=== PATIENT | male | born 1995 | race Caucasian/White ===

== ENCOUNTER 2019-07-07 18:18 | Inpatient (IN) | payer OTHER ==
[~2019-07-07] VITALS: Ht 180.3 cm; Wt 79.8 kg
[2019-07-07 18:30] VITALS: BP 124/79
--- NOTE | 2019-07-07 18:30 | NUR ---
ED Nurse Note: Patient walked in to ED due to RLQ abdominal pain x2 days. Denies nausea and vomiting. Afebrile. Alert and oriented, verbally responsive. Breathing even and unlabored. VSS.
--- NOTE | 2019-07-07 18:41 | NUR ---
ED Nurse Note: she by lo . arrives ambulatory for c/o RLQ abd pain. started 2 days ago without a fever. amb steady gait to . denies urinary s/s. voided urine sample sent to ed. pt to have US RLQ. no iv/blood draw ordered at this time.
--- NOTE | 2019-07-07 18:42 | NUR ---
ED Nurse Note: pt notified to remain NPO.
[2019-07-07 19:01] LABS: APPEARANCE,URINE CLEAR; BILIRUBIN, URINE NEGATIVE (NEGATIVE); COLOR,URINE PALE YELLOW; GLUCOSE, URINE (UA) NEGATIVE (NEGATIVE); KETONES,URINE NEGATIVE (NEGATIVE); LEUKOCYTE ESTERASE ,URINE NEGATIVE (NEGATIVE); NITRITE,URINE NEGATIVE (NEGATIVE); PH,URINE 6 (4.5-8.0); PROTEIN,URINE NEGATIVE (NEGATIVE); UROBILINOGEN,URINE NORMAL MG/DL (0.0-1.0)
[2019-07-07 19:10] LABS: BASOPHILS % (AUTO) 0.8 % (0.0-2.0); EOSINOPHILS % (AUTO) 0.4 % (0.0-3.0); HEMATOCRIT 40.9 % (42.0-52.0); HEMOGLOBIN 14.2 G/DL (14.2-18.0); LYMPHOCYTES % (AUTO) 16.5 % (20.0-45.0); MEAN CORPUSCULAR VOLUME 89 FL (80-99); MONOCYTES % (AUTO) 11.8 % (1.0-10.0); NEUTROPHILS % (AUTO) 70.6 % (45.0-75.0); PLATELET COUNT 228 K/UL (150-450); RED BLOOD COUNT 4.62 M/UL (4.70-6.10); RED CELL DISTRIBUTION WIDTH 10.3 % (11.6-14.8)
--- NOTE | 2019-07-07 19:10 | NUR ---
ED Nurse Note: Patient currently still undergoing ultrasound at bedside. Will continue to monitor.
--- NOTE | 2019-07-07 19:12 | NUR ---
HAND-OFF: Report given to Porsha BERGERON.
[2019-07-07 19:24] LABS: INR 1.1 (0.9-1.1)
[2019-07-07 19:28] LABS: ANION GAP 12 mmol/L (5-15); BLOOD UREA NITROGEN 11 mg/dL (7-18); CALCIUM 9.3 MG/DL (8.5-10.1); CARBON DIOXIDE 27 MMOL/L (21-32); CHLORIDE 101 MMOL/L (98-107); CREATININE 1.1 MG/DL (0.55-1.30); POTASSIUM 3.2 MMOL/L (3.5-5.1); SODIUM 140 MMOL/L (136-145)
[2019-07-07 19:42] LABS: ALANINE AMINOTRANSFERASE 24 U/L (12-78); ALBUMIN 3.9 G/DL (3.4-5.0); ALBUMIN/GLOBULIN RATIO 1.1 (1.0-2.7); ALKALINE PHOSPHATASE 77 U/L (46-116); ASPARTATE AMINO TRANSFERASE 22 U/L (15-37); BILIRUBIN,DIRECT 0.2 MG/DL (0.0-0.3); BILIRUBIN,TOTAL 1.3 MG/DL (0.2-1.0)
--- NOTE | 2019-07-07 20:10 | NUR ---
ED Nurse Note: Patient is resting comfortably with no s/s of acute distress. Will continue to monitor.
[2019-07-07] MEDS ORDERED: Piperacillin/Tazobactam 3.375 GM in NS 110 ML IVPB ONE (20:30)
--- NOTE | 2019-07-07 21:21 | Diagnostic Imaging Report ---
Indication: Abdominal pain Technique: Continuous helical transaxial imaging of the abdomen and pelvis was obtained from the lung bases to the pubic symphysis during intravenous contrast administration. Coronal 2-D reformats were also obtained. Study obtained in a Siemens sensation [address] Automatic Exposure Control was utilized. Total Dose length Product (DLP): 718.[address] Dose Index Volume (CTDIvol): 13.68 mGy Comparison: None Findings: The appendix shows wall thickening and enhancement and is dilated measuring up to about 13 mm. There is a moderate to severe amount of stranding of the periappendiceal fat. Findings consistent with acute appendicitis. There is no drainable abscess. There is no evidence of bowel obstruction or free fluid. The urinary bladder is unremarkable. Gallbladder is contracted. Solid organs appear normal. Lung bases are clear. IMPRESSION: Acute appendicitis. Preliminary results were conveyed to the emergency department 07/07/2019, 20:56. Findings subsequently discussed and reviewed with Dr. Alejandra. The CT scanner at [facility] is accredited by the [employer] and the scans are performed using dose optimization techniques as appropriate to a performed exam including Automatic Exposure control.
--- NOTE | 2019-07-07 21:25 | Emergency Room Report ---
History of Present Illness General Chief Complaint: Abdominal Pain Source: Patient (Carolee Hebert) Present Illness HPI 23-year-old male with no symptom past medical history here complaining of 2 days of right lower quadrant abdominal pain. Patient is rating the pain 7 out of 10 without radiation. Denies nausea vomiting, diarrhea and constipation. Denies heavy lifting and strenuous physical activity. [place] Denies chest pain, shortness of breath, palpitation , dizziness and headache. Has not taken medication for symptoms. Denies any past surgical history in the abdomen. Denies fever and chills. Denies any drug use, smoking, alcohol intake. Patient is guarding her right lower quadrant. (Carolee Hebert) Allergies: Coded Allergies: No Known Allergies (Unverified , 07/07/19) Patient History Past Medical History: see triage record Past Surgical History: unable to obtain Pertinent Family History: none Immunizations: UTD Reviewed Nursing Documentation: PMH: Agreed; PSxH: Agreed (Carolee Hebert) Nursing Documentation-PMH Past Medical History: No Stated History (Carolee Hebert) Review of Systems All Other Systems: negative except mentioned in HPI (Carolee Hebert) Physical Exam Vital Signs Date Time Temp Pulse Resp B/P (MAP) Pulse Ox O2 Delivery O2 Flow Rate FiO2 07/07/19 18:24 98.4 80 18 124/79 (94) 97 Room Air Sp02 EP Interpretation: reviewed, normal General Appearance: no apparent distress, alert, GCS 15, non-toxic Head: normocephalic, atraumatic Eyes: bilateral eye normal inspection, bilateral eye PERRL ENT: hearing grossly normal, normal pharynx, no angioedema, normal voice Neck: full range of motion, supple/symm/no masses Respiratory: chest non-tender, lungs clear, normal breath sounds, speaking full sentences Cardiovascular #1: regular rate, rhythm, no edema, no murmur Gastrointestinal: normal bowel sounds, non tender, soft, non-distended, guarding - RLQ, other - Mcburnys pos, neg rovsings Rectal: deferred Genitourinary: no CVA tenderness Musculoskeletal: back normal, gait/station normal, normal range of motion, non- tender, no calf tenderness Neurologic: alert, oriented x3, responsive, motor strength/tone normal, sensory intact, speech normal Psychiatric: judgement/insight normal, memory normal, mood/affect normal, no suicidal/homicidal ideation Skin: no rash Lymphatic: no adenopathy (Carolee Hebert) Medical Decision Making PA Attestation All my diagnosis and treatment plans were reviewed ad discussed with my supervising physician Dr. Villegas (Carolee Hebert) Diagnostic Impression: Primary Impression: Perforated appendix Additional Impression: Acute appendicitis ER Course 23-year-old male with no symptom past medical history here complaining of 2 days of right lower quadrant abdominal pain. Patient is rating the pain 7 out of 10 without radiation. Denies nausea vomiting, diarrhea and constipation. Denies heavy lifting and strenuous physical activity. Patient reports that [place]. Denies chest pain, shortness of breath, palpitation , dizziness and headache. Has not taken medication for symptoms. Denies any past surgical history in the abdomen. Denies fever and chills. Denies any drug use, smoking, alcohol intake. Patient is guarding her right lower quadrant. Ddx considered but are not limited to: appendicitis, cholecystis, gastritis, gasthroentritis, UTI, pyelonephritis, SBO, diverticulitis, influenza with GI manifestation, Vital signs: are WNL, pt. is afebrile H&PE are most consistent with: perforated appendix ORDERS: abdominal CT, abdominal pain set, EKG, ED INTERVENTIONS: Shaq Patient was admited with diagnosis of perforated appendix to Dr. Qureshi under supervision of Dr.: Bakari Alejandra has already been consulted by Dr. Villegas pt stable at time of admission (Carolee Hebert) ER Course Patient is a 23-year-old male seen by me with physician yard assistant. Patient was noted to have several days of right lower abdominal pain. Physical exam shows some evidence of localized peritonitis in the right lower abdomen. CT imaging showed appendicitis with perforation without any definite abscess. I reviewed the patient's labs which showed normal white blood count despite significant findings on CT. patient declined pain medications at this time. Dr. Lucien Qureshi was contacted for inpatient management due to panel physician. Dr. Alejandra was contacted for surgical consult. Patient was given IV Zosyn. He does not be appear to be septic or toxic. (Matheus Villegas MD) CT/MRI/US Diagnostic Results CT/MRI/US Diagnostic Results : Imaging Test Ordered: abd CT with contrast Impression CT ABDOMEN With Contrast: Impression: Dilated appendix measuring up to 14 mm with marked adjacent stranding and probable appendicoliths suggesting acute appendicitis. Microperforation is suspected. No loculated fluid collection to suggest abscess. Additional findings: Lower thorax is unremarkable. Liver, gallbladder, spleen, pancreas and adrenal glands are unremarkable. Kidneys, ureters and urinary bladder unremarkable. Bowel is unremarkable. No acute osseous abnormality. (Carolee Hebert) Last Vital Signs Date Time Temp Pulse Resp B/P (MAP) Pulse Ox O2 Delivery O2 Flow Rate FiO2 07/07/19 18:30 98.4 18 124/79 97 Room Air 07/07/19 18:30 80 (Carolee Hebert) Disposition: ADMITTED INPATIENT Condition: Stable Scripts No Active Prescriptions or Reported Meds Referrals: NOT CHOSEN IPA/,REFERRING (PCP) Carolee Hebert Jul 07, 2019 21:25 Matheus Villegas MD Jul 09, 2019 11:35
--- NOTE | 2019-07-07 21:27 | NUR ---
ED Nurse Note: Patient cleared for transport to floor, patient accompanied by refurbish technician, Report called in to Karishma RN in Med surg. Patient is A&Ox4, no s/s of acute distress and ambulattory with steady gait.
--- NOTE | 2019-07-07 21:30 | NUR ---
NURSE NOTES: Received a report from ELYSSA Story. Awaiting for pt's arrival.
--- NOTE | 2019-07-07 21:48 | NUR ---
NURSE NOTES: Pt arrived in the unit. Pt is in stable condition. AAOX4. Able to make needs known. No c/o pain/discomfort. IV site is patent and intact. Belongings checked and signed by patient. Skin is intact. Bed in lowest position. Bed alarm is on. Call light within reach. Will continue to monitor.
[2019-07-07 21:57] VITALS: BP 152/82
[2019-07-07] MEDS: D5 1/2NS 1,000 ML IV SCH (22:37)
[2019-07-08] VITALS (12 sets, daily range): BP systolic 109–148; BP diastolic 56–79
[2019-07-08 07:03] LABS: BASOPHILS % (AUTO) 0.7 % (0.0-2.0); EOSINOPHILS % (AUTO) 1.1 % (0.0-3.0); HEMATOCRIT 38.8 % (42.0-52.0); HEMOGLOBIN 13.4 G/DL (14.2-18.0); LYMPHOCYTES % (AUTO) 16.3 % (20.0-45.0); MEAN CORPUSCULAR VOLUME 89 FL (80-99); MONOCYTES % (AUTO) 15.7 % (1.0-10.0); NEUTROPHILS % (AUTO) 66.1 % (45.0-75.0); PLATELET COUNT 206 K/UL (150-450); RED BLOOD COUNT 4.35 M/UL (4.70-6.10); RED CELL DISTRIBUTION WIDTH 10.6 % (11.6-14.8); WHITE BLOOD COUNT 8.4 K/UL (4.8-10.8)
--- NOTE | 2019-07-08 07:15 | NUR ---
HAND-OFF: Report given to Bruce Andre RN. Endorsed to ELYSSA Barrera to f/u the 3.2 potassium yesterday.
[2019-07-08 07:49] LABS: ALANINE AMINOTRANSFERASE 25 U/L (12-78); ALBUMIN 3.6 G/DL (3.4-5.0); ALKALINE PHOSPHATASE 71 U/L (46-116); ANION GAP 10 mmol/L (5-15); ASPARTATE AMINO TRANSFERASE 26 U/L (15-37); BILIRUBIN,TOTAL 0.8 MG/DL (0.2-1.0); BLOOD UREA NITROGEN 10 mg/dL (7-18); CALCIUM 9.2 MG/DL (8.5-10.1); CARBON DIOXIDE 27 MMOL/L (21-32); CHLORIDE 105 MMOL/L (98-107); CREATININE 0.9 MG/DL (0.55-1.30); POTASSIUM 3.9 MMOL/L (3.5-5.1); SODIUM 142 MMOL/L (136-145)
[2019-07-08] MEDS: Piperacillin/Tazobactam 3.375 GM in NS 110 ML IVPB SCH ×2 (09:00→17:55)
--- NOTE | 2019-07-08 09:34 | GI Progress Note ---
Assessment/Plan Problems: (1) Abdominal pain ICD Codes: R10.9 - Unspecified abdominal pain SNOMED: 02917237 (2) Perforated appendix ICD Codes: K35.32 - Acute appendicitis with perforation and localized peritonitis, without abscess SNOMED: 38656467 Assessment/Plan npo iv abx fu surg recs no need for GI procedures Subjective Gastrointestinal/Abdominal: Reports: abdominal pain Objective Last 24 Hour Vital Signs Date Time Temp Pulse Resp B/P (MAP) Pulse Ox O2 Delivery O2 Flow Rate FiO2 07/08/19 04:00 98.4 55 18 109/68 (82) 99 07/08/19 00:00 98.7 67 20 124/56 (78) 99 07/07/19 22:08 Room Air 07/07/19 21:57 99.7 79 18 152/82 (105) 96 07/07/19 21:27 98.4 18 124/79 97 Room Air 07/07/19 18:30 98.4 18 124/79 97 Room Air 07/07/19 18:30 80 18 Room Air 07/07/19 18:24 98.4 80 18 124/79 (94) 97 Room Air Intake and Output 07/07/19 07/08/19 19:00 07:00 Intake Total 600 ml Balance 600 ml Intake IV Total 600 ml # Voids 1 3 Laboratory Tests Test 07/07/19 18:30 07/07/19 18:55 07/08/19 06:34 Urine Color Pale yellow Urine Appearance Clear Urine pH 6 (4.5-8.0) Urine Specific [place] 1.010 (1.005-1.035) Urine Protein Negative (NEGATIVE) Urine Glucose (UA) Negative (NEGATIVE) Urine Ketones Negative (NEGATIVE) Urine Blood 2+ (NEGATIVE) H Urine Nitrite Negative (NEGATIVE) Urine Bilirubin Negative (NEGATIVE) Urine Urobilinogen Normal MG/DL (0.0-1.0) Urine Leukocyte Esterase Negative (NEGATIVE) Urine RBC 0-2 /HPF (0 - 0) H Urine WBC 0-2 /HPF (0 - 0) Urine Squamous Epithelial Cells None /LPF (NONE/OCC) Urine Bacteria Few /HPF (NONE) White Blood Count 10.0 K/UL (4.8-10.8) 8.4 K/UL (4.8-10.8) Red Blood Count 4.62 M/UL (4.70-6.10) L 4.35 M/UL (4.70-6.10) L Hemoglobin 14.2 G/DL (14.2-18.0) 13.4 G/DL (14.2-18.0) L Hematocrit 40.9 % (42.0-52.0) L 38.8 % (42.0-52.0) L Mean Corpuscular Volume 89 FL (80-99) 89 FL (80-99) Mean Corpuscular Hemoglobin 30.7 PG (27.0-31.0) 30.7 PG (27.0-31.0) Mean Corpuscular Hemoglobin Concent 34.7 G/DL (32.0-36.0) 34.4 G/DL (32.0-36.0) Red Cell Distribution Width 10.3 % (11.6-14.8) L 10.6 % (11.6-14.8) L Platelet Count 228 K/UL (150-450) 206 K/UL (150-450) Mean Platelet Volume 6.6 FL (6.5-10.1) 6.8 FL (6.5-10.1) Neutrophils (%) (Auto) 70.6 % (45.0-75.0) 66.1 % (45.0-75.0) Lymphocytes (%) (Auto) 16.5 % (20.0-45.0) L 16.3 % (20.0-45.0) L Monocytes (%) (Auto) 11.8 % (1.0-10.0) H 15.7 % (1.0-10.0) H Eosinophils (%) (Auto) 0.4 % (0.0-3.0) 1.1 % (0.0-3.0) Basophils (%) (Auto) 0.8 % (0.0-2.0) 0.7 % (0.0-2.0) Prothrombin Time 11.2 SEC (9.30-11.50) Prothromb Time International Ratio 1.1 (0.9-1.1) Activated Partial Thromboplast Time 29 SEC (23-33) Sodium Level 140 MMOL/L (136-145) 142 MMOL/L (136-145) Potassium Level 3.2 MMOL/L (3.5-5.1) L 3.9 MMOL/L (3.5-5.1) Chloride Level 101 MMOL/L (98-107) 105 MMOL/L (98-107) Carbon Dioxide Level 27 MMOL/L (21-32) 27 MMOL/L (21-32) Anion Gap 12 mmol/L (5-15) 10 mmol/L (5-15) Blood Urea Nitrogen 11 mg/dL (7-18) 10 mg/dL (7-18) Creatinine 1.1 MG/DL (0.55-1.30) 0.9 MG/DL (0.55-1.30) Estimat Glomerular Filtration Rate > 60 mL/min (>60) > 60 mL/min (>60) Glucose Level 100 MG/DL (74-106) 101 MG/DL (74-106) Calcium Level 9.3 MG/DL (8.5-10.1) 9.2 MG/DL (8.5-10.1) Total Bilirubin 1.3 MG/DL (0.2-1.0) H 0.8 MG/DL (0.2-1.0) Direct Bilirubin 0.2 MG/DL (0.0-0.3) Aspartate Amino Transf (AST/SGOT) 22 U/L (15-37) 26 U/L (15-37) Alanine Aminotransferase (ALT/SGPT) 24 U/L (12-78) 25 U/L (12-78) Alkaline Phosphatase 77 U/L (46-116) 71 U/L (46-116) Total Protein 7.6 G/DL (6.4-8.2) 7.1 G/DL (6.4-8.2) Albumin 3.9 G/DL (3.4-5.0) 3.6 G/DL (3.4-5.0) Globulin 3.7 g/dL 3.5 g/dL Albumin/Globulin Ratio 1.1 (1.0-2.7) 1.0 (1.0-2.7) Lipase 68 U/L (73-393) L Microbiology Date/Time Source Procedure Growth Status 07/07/19 21:00 Rectum Received Height (Feet): 5 Height (Inches): 11.00 Weight (Pounds): 176 General Appearance: no apparent distress Cardiovascular: normal rate Respiratory/Chest: lungs clear Abdominal Exam: decreased bowel sounds, tender Cole Carias MD Jul 08, 2019 09:34
--- NOTE | 2019-07-08 10:50 | NUR ---
NURSE NOTES: PATIENT LEFT THE UNIT FOR SURGICAL PROCEDURE. WENT OVER PATIENT ID VERIFICATION WITH THE TRANSPORTER.
[2019-07-08] MEDS ORDERED: Propofol 200mg/20ml IV ONE ×2 (10:56→12:13)
[2019-07-08] MEDS ORDERED: Midazolam 2mg/2ml Inj ONE (10:56)
[2019-07-08] MEDS ORDERED: fentaNYL 100 mcg/2 mL IV ONE (10:56)
[2019-07-08] MEDS ORDERED: Lidocaine 1% MPF 10mg/ml 5ml ONE (10:56)
--- NOTE | 2019-07-08 11:37 | NUR ---
NURSE NOTES: HANDOFF RECEIVED FROM ELYSSA SALINAS. PATIENT OBSERVED RESTING IN BED, NO PHYSICAL SIGNS OF DISTRESS OR DISCOMFORT. PATIENT IS ABLE TO MAKE NEEDS KNOWN. BED IN LOW AND LOCKED POSITION WITH CALL LIGHT AT REACH.
[2019-07-08] MEDS: D5 1/2NS 1,000 ML IV SCH ×2 (11:50→23:17)
[2019-07-08] MEDS ORDERED: Sterile Water Irrig 1000ml IRRIG ONE (12:00)
[2019-07-08] MEDS ORDERED: Neostigmine 1mg/ml 10ml Inj ONE (12:00)
[2019-07-08] MEDS ORDERED: Succinylcholine 20mg/ml 10ml vial ONE (12:00)
[2019-07-08] MEDS ORDERED: LR 1000ml ONE (12:00)
[2019-07-08] MEDS ORDERED: Zemuron 50mg/5ml Inj IV ONE (12:08)
[2019-07-08] MEDS ORDERED: NS Irrig 1000ml IRRIG ONE ×3 (12:29→13:36)
[2019-07-08] MEDS ORDERED: Morphine Sulfate 10mg/ml Inj ONE (12:46)
[2019-07-08] MEDS ORDERED: Glycopyrrolate 0.2mg/ml 1ml Vial ONE (12:46)
[2019-07-08] MEDS ORDERED: Ketorolac 30mg Inj ONE (12:46)
[2019-07-08] MEDS ORDERED: LR 1000ml 1,000 ML IVLG SCH (13:01)
--- NOTE | 2019-07-08 13:01 | Anethesia Preoperative Eval ---
Anesthesia Pre-op PMH/ROS General Date of Evaluation: Jul 08, 2019 Time of Evaluation: 12:10 Anesthesiologist: Ebony ASA Score: ASA 2 Mallampati Score Class I : Soft palate, uvula, fauces, pillars visible Class II: Soft palate, uvula, fauces visible Class III: Soft palate, base of uvula visible Class IV: Only hard plate visible Mallampati Classification: Class II Surgeon: Melania Diagnosis: Acute appendicitis Surgical Procedure: Lap apendectomy Anesthesia History: none Family History: no anesthesia problems Allergies: Coded Allergies: No Known Allergies (Unverified , 07/07/19) Patient NPO?: Yes NPO Date: Jul 07, 2019 NPO Time: 1700 Past Medical History Cardiovascular: Denies: HTN, CAD, [place], valve dz, arrhythmia, other Pulmonary: Denies: asthma, COPD, JAMILA, other Gastrointestinal/Genitourinary: Denies: GERD, CRI, ESRD, other Neurologic/Psychiatric: Denies: dementia, CVA, depression/anxiety, TIA, other Endocrine: Denies: DM, hypothyroidism, steroids, other HEENT: Denies: cataract (L), cataract (R), glaucoma, ELY SHOSHONE (L), ELY SHOSHONE (R), other Hematology/Immune: Denies: anemia, DVT, bleeding disorder, other Musculoskeletal/Integumentary: Denies: OA, RA, DJD, DDD, edema, other PMH Narrative: as above, admitted for acute abdominal pain PSxH Narrative: ACL repair Anesthesia Pre-op Phys. Exam Physician Exam Last Vital Signs Date Time Temp Pulse Resp B/P (MAP) Pulse Ox O2 Delivery O2 Flow Rate FiO2 07/08/19 09:00 Room Air 07/08/19 04:00 98.4 55 18 109/68 (82) 99 Constitutional: NAD Neurologic: CN 2-12 intact Cardiovascular: RRR, no M/R/G Respiratory: CTA Gastrointestinal: S/NT/ND Airway Exam Mallampati Score: Class II MO: full Neck: flexible ROM: full Teeth: intact Dentures: no upper, no lower Anesthesia Pre-op A/P Labs Hematology Test 07/07/19 18:55 07/08/19 06:34 White Blood Count 10.0 K/UL (4.8-10.8) 8.4 K/UL (4.8-10.8) Red Blood Count 4.62 M/UL (4.70-6.10) L 4.35 M/UL (4.70-6.10) L Hemoglobin 14.2 G/DL (14.2-18.0) 13.4 G/DL (14.2-18.0) L Hematocrit 40.9 % (42.0-52.0) L 38.8 % (42.0-52.0) L Mean Corpuscular Volume 89 FL (80-99) 89 FL (80-99) Mean Corpuscular Hemoglobin 30.7 PG (27.0-31.0) 30.7 PG (27.0-31.0) Mean Corpuscular Hemoglobin Concent 34.7 G/DL (32.0-36.0) 34.4 G/DL (32.0-36.0) Red Cell Distribution Width 10.3 % (11.6-14.8) L 10.6 % (11.6-14.8) L Platelet Count 228 K/UL (150-450) 206 K/UL (150-450) Mean Platelet Volume 6.6 FL (6.5-10.1) 6.8 FL (6.5-10.1) Neutrophils (%) (Auto) 70.6 % (45.0-75.0) 66.1 % (45.0-75.0) Lymphocytes (%) (Auto) 16.5 % (20.0-45.0) L 16.3 % (20.0-45.0) L Monocytes (%) (Auto) 11.8 % (1.0-10.0) H 15.7 % (1.0-10.0) H Eosinophils (%) (Auto) 0.4 % (0.0-3.0) 1.1 % (0.0-3.0) Basophils (%) (Auto) 0.8 % (0.0-2.0) 0.7 % (0.0-2.0) Coagulation Test 07/07/19 18:55 Prothrombin Time 11.2 SEC (9.30-11.50) Prothromb Time International Ratio 1.1 (0.9-1.1) Activated Partial Thromboplast Time 29 SEC (23-33) Chemistry Test 07/07/19 18:55 8/28/19 06:34 Sodium Level 140 MMOL/L (136-145) 142 MMOL/L (136-145) Potassium Level 3.2 MMOL/L (3.5-5.1) L 3.9 MMOL/L (3.5-5.1) Chloride Level 101 MMOL/L (98-107) 105 MMOL/L (98-107) Carbon Dioxide Level 27 MMOL/L (21-32) 27 MMOL/L (21-32) Anion Gap 12 mmol/L (5-15) 10 mmol/L (5-15) Blood Urea Nitrogen 11 mg/dL (7-18) 10 mg/dL (7-18) Creatinine 1.1 MG/DL (0.55-1.30) 0.9 MG/DL (0.55-1.30) Estimat Glomerular Filtration Rate > 60 mL/min (>60) > 60 mL/min (>60) Glucose Level 100 MG/DL (74-106) 101 MG/DL (74-106) Calcium Level 9.3 MG/DL (8.5-10.1) 9.2 MG/DL (8.5-10.1) Total Bilirubin 1.3 MG/DL (0.2-1.0) H 0.8 MG/DL (0.2-1.0) Direct Bilirubin 0.2 MG/DL (0.0-0.3) Aspartate Amino Transf (AST/SGOT) 22 U/L (15-37) 26 U/L (15-37) Alanine Aminotransferase (ALT/SGPT) 24 U/L (12-78) 25 U/L (12-78) Alkaline Phosphatase 77 U/L (46-116) 71 U/L (46-116) Total Protein 7.6 G/DL (6.4-8.2) 7.1 G/DL (6.4-8.2) Albumin 3.9 G/DL (3.4-5.0) 3.6 G/DL (3.4-5.0) Globulin 3.7 g/dL 3.5 g/dL Albumin/Globulin Ratio 1.1 (1.0-2.7) 1.0 (1.0-2.7) Lipase 68 U/L (73-393) L Risk Assessment & Plan Assessment: ASA 2 Plan: GA with ETT Status Change Before Surgery: No Pre-Antibiotics Drug: as scheduled Bhavin Beck MD Jul 08, 2019 13:01
[2019-07-08] MEDS ORDERED: Meperidine 50mg/ml Inj(FOR RIGORS ONLY) IV PRN (13:15)
[2019-07-08] MEDS ORDERED: Ketorolac 30mg Inj IV PRN (13:15)
[2019-07-08] MEDS ORDERED: Metoclopramide 10mg/2ml Inj IVP PRN ×2 (13:15→15:15)
[2019-07-08] MEDS ORDERED: Midazolam 2mg/2ml Inj IVP PRN (13:15)
--- NOTE | 2019-07-08 13:46 | NUR ---
*-* INSURANCE *-* ALL CLINICALS HAVE BEEN FAXED TO: [employer] [employer] ( INSURANCE ) LINDSEYM:OWEN P; [phone] F: [phone] REF# [id number]
--- NOTE | 2019-07-08 14:08 | NUR ---
NOTED PATIENT'S HEART RATE IS 45 -50'S, DR. VELARDE MADE AWARE, ALL NEEDS ATTENDED.
--- NOTE | 2019-07-08 14:09 | Immediate Post-Op Evaluation ---
Immediate Post-Op Evalulation Immediate Post-Op Evalulation Procedure: Laparoscopic appendectomy Date of Evaluation: Jul 08, 2019 Time of Evaluation: 14:08 IV Fluids: 1000 Blood Products: none Estimated Blood Loss: 50 Urinary Output: none Blood Pressure Systolic: 118 Blood Pressure Diastolic: 72 Pulse Rate: 52 Respiratory Rate: 20 O2 Sat by Pulse Oximetry: 99 Temperature (Fahrenheit): 97.6 Pain Score (1-10): 1 Nausea: No Vomiting: No Complications none Patient Status: reacts, patent, extubated, none Hydration Status: adequate Bhavin Beck MD Jul 08, 2019 14:09
--- NOTE | 2019-07-08 15:00 | NUR ---
CALLED DR. WALKER FOR POST OP ORDERS, HE SAID THAT HE WILL TAKE CARE OF IT AND PATIENT CAN GO BACK TO THE FLOOR, ALL NEEDS ATTENDED.
--- NOTE | 2019-07-08 15:08 | Consultation ---
History of Present Illness General Date patient seen: Jul 08, 2019 Reason for Hospitalization: Abdominal Pain Present Illness HPI 23-year-old male presented to [facility] complaining of worsening abdominal pain. Patient presented [place] airplane 2 [place] ago from [place] and began to have abdominal discomfort. Thought he come in for evaluation. No nausea vomiting fever chills. Pain right lower quadrant cramping 4 out of 10 worse with walking better with rest labs noted and okay. Imaging with acute appendicitis. Surgery called to evaluate and assist with care Allergies: Coded Allergies: No Known Allergies (Unverified , 07/07/19) Medication History No Active Prescriptions or Reported Meds Patient History History Provided By: Patient, Medical Record, PMD Healthcare decision maker N Resuscitation status Full Code Advanced Directive on File Past Medical/Surgical History Past Medical/Surgical History: (1) Acute appendicitis (2) Perforated appendix (3) Abdominal pain Review of Systems Review of Symptoms General ROS: no weight loss or fever Psychological ROS: no depression or mood changes, no memory loss Ophthalmic ROS: no visual changes or eye irritation ENT ROS: no nasal congestion, hearing loss, dizziness Allergy and Immunology ROS: no allergic symptoms or urticaria Hematological and Lymphatic ROS: no swollen glands, unusual bleeding or bruising Endocrine ROS: no polyuria, polydipsia, weight changes, temperature intolerance Respiratory ROS: no cough, shortness of breath, or wheezing Cardiovascular ROS: no chest pain or dyspnea on exertion Gastrointestinal ROS: abdominal pain, no bright red blood in stool. Musculoskeletal ROS: no myalgias or arthralgias Neurological ROS: no TIA or stroke symptoms Dermatological ROS: no new or changing skin lesions, rashes or pruritis Physical Exam Physical Exam General appearance: alert, cooperative, no distress, appears stated age Head: Normocephalic, without obvious abnormality, atraumatic Eyes: conjunctivae/corneas clear. PERRL, EOM's intact. Fundi benign Throat: Lips, mucosa, and tongue normal. Teeth and gums normal Neck: supple, symmetrical, trachea midline, no adenopathy, thyroid: not enlarged, symmetric, no tenderness/mass/nodules, no carotid bruit and no JVD Lungs: clear to auscultation bilaterally Heart: regular rate and rhythm, S1, S2 normal, no murmur, click, rub or gallop Abdomen: soft,rlq-tender. Bowel sounds normal. No masses, no organomegaly Extremities: extremities normal, atraumatic, no cyanosis or edema Pulses: 2+ and symmetric Skin: Skin color, texture, turgor normal. No rashes or lesions Neurologic: Grossly normal Last 24 Hour Vital Signs Date Time Temp Pulse Resp B/P (MAP) Pulse Ox O2 Delivery O2 Flow Rate FiO2 07/08/19 14:46 46 19 134/75 99 Room Air 07/08/19 14:36 47 18 138/79 100 Room Air 07/08/19 14:26 46 17 148/77 100 Simple Mask 6.0 07/08/19 14:16 48 18 141/66 100 Simple Mask 6.0 07/08/19 14:11 50 19 132/76 100 Simple Mask 6.0 07/08/19 14:09 52 20 99 07/08/19 14:06 97.4 62 20 125/77 100 Simple Mask 6.0 07/08/19 09:00 Room Air 07/08/19 04:00 98.4 55 18 109/68 (82) 99 07/08/19 00:00 98.7 67 20 124/56 (78) 99 07/07/19 22:08 Room Air 07/07/19 21:57 99.7 79 18 152/82 (105) 96 07/07/19 21:27 98.4 18 124/79 97 Room Air 07/07/19 18:30 98.4 18 124/79 97 Room Air 07/07/19 18:30 80 18 Room Air 07/07/19 18:24 98.4 80 18 124/79 (94) 97 Room Air Intake and Output 07/07/19 07/08/19 19:00 07:00 Intake Total 600 ml Balance 600 ml Intake IV Total 600 ml # Voids 1 3 Laboratory Tests Test 07/07/19 18:30 07/07/19 18:55 07/08/19 06:34 Urine Color Pale yellow Urine Appearance Clear Urine pH 6 (4.5-8.0) Urine Specific [place] 1.010 (1.005-1.035) Urine Protein Negative (NEGATIVE) Urine Glucose (UA) Negative (NEGATIVE) Urine Ketones Negative (NEGATIVE) Urine Blood 2+ (NEGATIVE) H Urine Nitrite Negative (NEGATIVE) Urine Bilirubin Negative (NEGATIVE) Urine Urobilinogen Normal MG/DL (0.0-1.0) Urine Leukocyte Esterase Negative (NEGATIVE) Urine RBC 0-2 /HPF (0 - 0) H Urine WBC 0-2 /HPF (0 - 0) Urine Squamous Epithelial Cells None /LPF (NONE/OCC) Urine Bacteria Few /HPF (NONE) White Blood Count 10.0 K/UL (4.8-10.8) 8.4 K/UL (4.8-10.8) Red Blood Count 4.62 M/UL (4.70-6.10) L 4.35 M/UL (4.70-6.10) L Hemoglobin 14.2 G/DL (14.2-18.0) 13.4 G/DL (14.2-18.0) L Hematocrit 40.9 % (42.0-52.0) L 38.8 % (42.0-52.0) L Mean Corpuscular Volume 89 FL (80-99) 89 FL (80-99) Mean Corpuscular Hemoglobin 30.7 PG (27.0-31.0) 30.7 PG (27.0-31.0) Mean Corpuscular Hemoglobin Concent 34.7 G/DL (32.0-36.0) 34.4 G/DL (32.0-36.0) Red Cell Distribution Width 10.3 % (11.6-14.8) L 10.6 % (11.6-14.8) L Platelet Count 228 K/UL (150-450) 206 K/UL (150-450) Mean Platelet Volume 6.6 FL (6.5-10.1) 6.8 FL (6.5-10.1) Neutrophils (%) (Auto) 70.6 % (45.0-75.0) 66.1 % (45.0-75.0) Lymphocytes (%) (Auto) 16.5 % (20.0-45.0) L 16.3 % (20.0-45.0) L Monocytes (%) (Auto) 11.8 % (1.0-10.0) H 15.7 % (1.0-10.0) H Eosinophils (%) (Auto) 0.4 % (0.0-3.0) 1.1 % (0.0-3.0) Basophils (%) (Auto) 0.8 % (0.0-2.0) 0.7 % (0.0-2.0) Prothrombin Time 11.2 SEC (9.30-11.50) Prothromb Time International Ratio 1.1 (0.9-1.1) Activated Partial Thromboplast Time 29 SEC (23-33) Sodium Level 140 MMOL/L (136-145) 142 MMOL/L (136-145) Potassium Level 3.2 MMOL/L (3.5-5.1) L 3.9 MMOL/L (3.5-5.1) Chloride Level 101 MMOL/L (98-107) 105 MMOL/L (98-107) Carbon Dioxide Level 27 MMOL/L (21-32) 27 MMOL/L (21-32) Anion Gap 12 mmol/L (5-15) 10 mmol/L (5-15) Blood Urea Nitrogen 11 mg/dL (7-18) 10 mg/dL (7-18) Creatinine 1.1 MG/DL (0.55-1.30) 0.9 MG/DL (0.55-1.30) Estimat Glomerular Filtration Rate > 60 mL/min (>60) > 60 mL/min (>60) Glucose Level 100 MG/DL (74-106) 101 MG/DL (74-106) Calcium Level 9.3 MG/DL (8.5-10.1) 9.2 MG/DL (8.5-10.1) Total Bilirubin 1.3 MG/DL (0.2-1.0) H 0.8 MG/DL (0.2-1.0) Direct Bilirubin 0.2 MG/DL (0.0-0.3) Aspartate Amino Transf (AST/SGOT) 22 U/L (15-37) 26 U/L (15-37) Alanine Aminotransferase (ALT/SGPT) 24 U/L (12-78) 25 U/L (12-78) Alkaline Phosphatase 77 U/L (46-116) 71 U/L (46-116) Total Protein 7.6 G/DL (6.4-8.2) 7.1 G/DL (6.4-8.2) Albumin 3.9 G/DL (3.4-5.0) 3.6 G/DL (3.4-5.0) Globulin 3.7 g/dL 3.5 g/dL Albumin/Globulin Ratio 1.1 (1.0-2.7) 1.0 (1.0-2.7) Lipase 68 U/L (73-393) L Microbiology Date/Time Source Procedure Growth Status 07/07/19 21:00 Rectum Received Height (Feet): 5 Height (Inches): 11.00 Weight (Pounds): 176 Medications Current Medications Medications (Trade) Dose Ordered Sig/Flip Route PRN Reason Start Time Stop Time Status Last Admin Dose Admin Acetaminophen (Tylenol) 650 mg Q4H PRN ORAL Mild Pain/Temp > 100.5 07/07/19 22:30 08/06/19 22:29 Dextrose/Sodium Chloride 1,000 ml @ 75 mls/hr [id number] IV 07/07/19 22:30 08/06/19 22:29 07/07/19 22:37 Ketorolac Tromethamine (Toradol 30mg) 30 mg Q1H PRN IV Severe Breakthru Pain (>7) 07/08/19 13:15 07/08/19 21:00 Meperidine HCl (Demerol) 25 mg Q15M PRN IV chills 07/08/19 13:15 07/08/19 21:00 Metoclopramide HCl (Reglan) 10 mg Q1H PRN IVP Nausea & Vomiting 07/08/19 13:15 07/08/19 21:00 Midazolam HCl (Versed 2mg/2ml vial) 1 mg Q15M PRN IVP For Anxiety 07/08/19 13:15 07/08/19 21:00 Piperacillin Sod/ Tazobactam Sod 3.375 gm/Sodium Chloride 110 ml @ 27.5 mls/hr Q8H IVPB 07/08/19 09:00 07/15/19 08:59 Assessment/Plan Problem List: (1) Acute appendicitis Assessment & Plan: 23-year-old male acute appendicitis. Question of perforation. CT reviewed by myself and with the radiologist and no abscess identified. I do see a window at the base of the appendix that could be clear for appendectomy. No significant cecal inflammation noted. Seems to be fairly early appendicitis just severe with a lot of periappendiceal stranding. Given these findings long discussion with patient regarding operative versus nonoperative management. After all risk benefits alternatives discussed patient decided to proceed with operative management. We discussed laparoscopic surgery with as well as diagnostic laparoscopy. We will begin with inserting a scope if hostile or significant concerns will abort and continue with medical management if not we will proceed with appendectomy. Consent obtained. N.p.o. IV fluids IV antibiotics 2 OR for intervention today. Thank you for allowing me to participate in patient's care ICD Codes: K35.80 - Unspecified acute appendicitis SNOMED: 99849631 (2) Perforated appendix ICD Codes: K35.32 - Acute appendicitis with perforation and localized peritonitis, without abscess SNOMED: 89840265 (3) Abdominal pain ICD Codes: R10.9 - Unspecified abdominal pain SNOMED: 70168390 Ishmael Alejandra Jul 08, 2019 15:08
--- NOTE | 2019-07-08 15:09 | Brief Operative Note ---
Immediate Post Operative Note Operative Note Pre-op Diagnosis: Acute appendicitis Procedure: Lap appendectomy Post-op Diagnosis: same as pre-op Surgeon: Ny Anesthesiologist: barrie Anesthesia: general, local Specimen: yes Complications: none Condition: stable Fluids: see records Estimated Blood Loss: volume - 25 Drains: other Implant(s) used?: No Ishmael Alejandra Jul 08, 2019 15:09
--- NOTE | 2019-07-08 15:09 | Pre-Procedure Note/Attestation ---
Pre-Procedure Note/Attestation Complete Prior to Procedure Planned Procedure: not applicable Procedure Narrative: Lap scopic appendectomy Indications for Procedure Pre-Operative Diagnosis: Acute appendicitis Attestation I attest that I discussed the nature of the procedure; its benefits; risks and complications; and alternatives (and the risks and benefits of such alternatives ), prior to the procedure, with the patient (or the patient's legal account executive sales representative). I attest that, if there was a reasonable possibility of needing a blood transfusion, the patient (or the patient's legal account executive sales representative) was given the [facility] standardized written summary, pursuant to the Stefano Tavon Blood Safety Act ([place] Health and Safety Code # 1645, as amended). I attest that I re-evaluated the patient just prior to the surgery and that there has been no change in the patient's H&P, except as documented below: Ishmael Alejandra Jul 08, 2019 15:09
[2019-07-08] MEDS ORDERED: Sennosides 8.6mg tab ORAL PRN (15:15)
[2019-07-08] MEDS ORDERED: Morphine Sulfate 2mg/ml Inj(IV/IM USE ONLY) IVP PRN (15:15)
[2019-07-08] MEDS ORDERED: Morphine Sulfate 4mg/ml Inj (IV USE ONLY) IVP PRN (15:15)
[2019-07-08] MEDS ORDERED: Milk of Magnesia 30ml Ud ORAL PRN (15:15)
--- NOTE | 2019-07-08 15:29 | NUR ---
NURSE NOTES: PATIENT RETURNED TO THE FLOOR FOLLOWING SURGERY. NOTED 3 SMALL INCISIONS ON THE LOWER ABDOMEN, NO BLEEDING OR SWELLING NOTED. LATEST VIRTALS ARE HR48, SP02 99 ON ROOM AIR, BP 141/74, TEMP 97.4. PATIENT STABLE AND ABLE TO MAKE NEEDS KNOWN. PATIENT DENIES PAIN AT THIS TIME. WILL CONTINUE TO MONITOR.
--- NOTE | 2019-07-08 16:25 | NUR ---
CASE MANAGEMENT: NOTE INTERQUAL MET
[2019-07-08] MEDS: Docusate 100mg cap ORAL SCH (17:55)
--- NOTE | 2019-07-08 19:02 | NUR ---
HAND-OFF: Report given to ELYSSA SALINAS.
--- NOTE | 2019-07-08 19:05 | NUR ---
NURSE NOTES: Received a report from Bruce Andre RN. AAOX4. Able to make needs known. On room air. No c/o pain/discomfort. IV site is patent and intact. 3 surgical sites noted on the abdomen. Bed in lowest position. Bed alarm is on. Call light within reach. Will continue to monitor.
--- NOTE | 2019-07-08 21:45 | Operative Note - Dictated ---
DATE OF OPERATION: 07/08/2019 PREOPERATIVE DIAGNOSIS: Acute appendicitis. POSTOPERATIVE DIAGNOSIS: Acute perforated appendicitis. OPERATION PERFORMED: Laparoscopic appendectomy. SURGEON: Ishmael Alejandra M.D. SALMON GILLNET VESSEL OPERATOR: None. ANESTHESIOLOGIST: Raghavendra Arauz M.D. ANESTHESIA: General FLEECE TIER plus local. ESTIMATED BLOOD LOSS: 25 mL. IV FLUIDS: Please see anesthesia records. COMPLICATIONS: None. DRAINS: None. COUNTS: Sponge and needle count correct x2. SPECIMENS: Appendix sent to pathology for review. ANTIBIOTICS: The patient is on scheduled IV antibiotics. WOUND CLASSIFICATION: Class 3. INDICATIONS FOR PROCEDURE: This 23-year-old male presented to the emergency department of [facility] complaining of worsening abdominal pain in the right lower quadrant. The patient is recently [place] from [place] when he had identified the pain and wanted to have evaluation. The patient with right lower quadrant tenderness. No leukocytosis and CT with appendicitis. Question of perforation. No abscess seen. Given these findings, risks, benefits, and alternatives were discussed with the patient in detail, who expressed understanding and consented to surgery. OPERATIVE NOTE: The patient was taken to the operating room and placed on the operating table in supine position with left arm tucked. All bony prominences were well padded. SCDs placed. Preoperative time-out taken in identifying the patient, procedure, operative staff, and surgical staff. General anesthesia was induced and the patient was intubated. The abdomen was clipped, prepped, and draped in standard surgical fashion. An umbilical incision was made using a fresh #11 scalpel, which is carried down to the fascia, which was elevated and incised. Entry into the abdomen was obtained using the open Kenan technique. A 12 mm Kenan trocar was inserted and the abdomen was insufflated to 12 to 15 mmHg. The patient tolerated the insufflation well. Laparoscope was inserted and the abdomen was inspected. Secondary trocars were placed under direct visualization beginning with a 12 mm left lower quadrant followed by a 5 mm suprapubic port. No injury from secondary trocar placement noted. Laparoscopic instruments were inserted and the abdomen was inspected. In the right lower quadrant almost retrocecal extending into the pelvis, there was a dilated inflamed appendix. With careful dissection, the appendix and its thick surrounding rind were gently dissected out. The base of the cecum was identified and the confluence of the cecum noted at the base of the appendix, which was fairly healthy and without too much significant inflammation. Fortunately, window was made at the base of the appendix and a laparoscopic linear staple was used and the appendix was divided from the cecum at the base. Following this, the thickened and inflamed mesoappendix was slowly gently dissected out and the appendiceal artery identified, doubly clipped, and divided. The remaining of the mesoappendix was divided with electrocautery and blunt dissection as necessary. Clips were used for hemostasis as necessary. The appendix was then placed in endoscopic retrieval bag and removed from the abdomen using the umbilical trocar site at the end of the procedure. Of note, in the thickened rind, the appendix was noted to be dilated and when inspected was perforated in the mid appendix with purulent fluid within the appendix. At this time, the base of the appendix and mesoappendix were identified and hemostatic with good staple line and clips. The pelvis and right lower quadrant were irrigated and suctioned until clear. The patient tolerated the procedure well. Secondary trocars were removed under direct visualization followed by the umbilical trocar site. The abdomen was desufflated. The umbilical trocar site fascia and left lower quadrant port site fascia were reapproximated using [id number] #0 Vicryl sutures. The skin incisions were cleansed and reapproximated using 4-0 Vicryl subcuticular interrupted sutures. Steri-Strips and Dermabond were applied. The patient tolerated the procedure well, was extubated, and taken to postanesthetic care unit in stable condition. Of note, local anesthetic was used throughout the procedure to the patient's comfort. Ishmael Alejandra M.D. DR: CECIL JOB#: [id number] CC: MOE
--- NOTE | 2019-07-08 23:15 | History and Physical Report ---
DATE OF ADMISSION: 07/07/2019 HISTORY OF PRESENT ILLNESS: The patient admitted for hypokalemia as well as acute appendicitis with possible perforation. Dr. Alejandra is aware from the beginning. Dr. Alejandra wanted to admit the patient initially for IV antibiotics and then for surgical cleaning of the possible perforated appendix. The patient states that he had abdominal pain and chills for 2 days. Denies nausea, vomiting. Denies shortness of breath. Denies cough. The patient is not in acute distress. PAST MEDICAL HISTORY: None. MEDICATIONS: None. ALLERGIES: No known allergies. PAST SURGICAL HISTORY: Left knee surgery and tonsillectomy. SOCIAL HISTORY: History of marijuana. No history of alcohol abuse. No history of smoking. MEDICATIONS: None. FAMILY HISTORY: Noncontributory. REVIEW OF SYSTEMS: HEENT: Denies headaches. RESPIRATORY: Denies shortness of breath. Denies cough. CARDIOVASCULAR: Denies chest pain or orthopnea. GASTROINTESTINAL: Reported abdominal pain and chills for 2 days. No vomiting. EXTREMITIES: Denies pain in lower extremities. CENTRAL NERVOUS SYSTEM: Denies change in vision or speech pattern. PHYSICAL EXAMINATION: VITAL SIGNS: Temperature is 97.6, pulse is 47, blood pressure 140/77. HEENT: PERRLA. NECK: Supple. No lymphadenopathy. CHEST: Clear to auscultation. CARDIOVASCULAR: Bradycardic. GASTROINTESTINAL: Soft. Tender especially on the right lower quadrant. No rebound. Abdomen is soft. EXTREMITIES: No edema. Moves all four extremities. CENTRAL NERVOUS SYSTEM: Sensory intact to light touch. Reflexes equal on both sides. Moves all four extremities. LABORATORY DATA: WBC of 10, hemoglobin of 14.2, platelets of 328. Sodium 140, potassium 3.2, BUN of 11, creatinine 1.1, glucose of 100. ASSESSMENT AND PLAN: Possible perforated appendix, electrolyte imbalance, abdominal pain, appendicitis. He is admitted for those reasons. I have asked basically Dr. Kervin Chris, Dr. Carias, Dr. Alejandra, Dr. Hazel to see the patient for the treatment of the above-mentioned diagnoses. Lucien Dumont M.D. DR: GEENA JOB#: [id number] CC:
[2019-07-09] VITALS: BP 115/54
[2019-07-09] MEDS: Piperacillin/Tazobactam 3.375 GM in NS 110 ML IVPB SCH ×3 (01:20→17:12)
[2019-07-09] MEDS: Morphine Sulfate 2mg/ml Inj(IV/IM USE ONLY) IVP PRN ×3 (03:01→19:15)
[2019-07-09 03:51] VITALS: BP 127/60
--- NOTE | 2019-07-09 06:35 | NUR ---
CASE MANAGEMENT: INITIAL REVIEW 23 YO M PRESENTED TO ED FROM HOME CC: ABD PAIN PMHx: DENIES SI:ABD PAIN T 98.4 HR 80 RR 18 B/P 124/79 SATS 97% ON RA K 3.2 TBILI 1.3 LIPASE 68 IS: OR MEDS PATIENT ADMITTED TO MED/SURG 07/07/2019 @ 2016 DCP: PATIENT TO BE DISCHARGED TO HOME ONCE MEDICALLY CLEARED. PLAN OF CARE: DATE OF OPERATION: 07/08/2019 PREOPERATIVE DIAGNOSIS: Acute appendicitis. POSTOPERATIVE DIAGNOSIS: Acute perforated appendicitis. OPERATION PERFORMED: Laparoscopic appendectomy. 07/09/2019 SI:ABD PAIN T 98.7 HR 58 RR 18 B/P 127/60 SATS 96% ON RA WNL IS: IVF @ 75 mL/HR ZOSYN IV Q8H MED/SURG STATUS DCP: PATIENT TO BE DISCHARGED TO HOME ONCE MEDICALLY CLEARED. PLAN OF CARE: POST OP CARE
--- NOTE | 2019-07-09 06:41 | NUR ---
INSURANCE REVIEW FAXED TO [employer] ( INSURANCE ) [facility]:[place]; [phone] F: [phone] REF# [id number]
--- NOTE | 2019-07-09 07:01 | NUR ---
HAND-OFF: Report given to Bruce Andre RN.
[2019-07-09 07:10] LABS: BASOPHILS % (AUTO) 0.7 % (0.0-2.0); EOSINOPHILS % (AUTO) 0.8 % (0.0-3.0); HEMATOCRIT 36.2 % (42.0-52.0); HEMOGLOBIN 12.5 G/DL (14.2-18.0); MEAN CORPUSCULAR VOLUME 88 FL (80-99); MONOCYTES % (AUTO) 9.8 % (1.0-10.0); NEUTROPHILS % (AUTO) 71.8 % (45.0-75.0); PLATELET COUNT 200 K/UL (150-450); RED BLOOD COUNT 4.12 M/UL (4.70-6.10); RED CELL DISTRIBUTION WIDTH 11.5 % (11.6-14.8); WHITE BLOOD COUNT 9.4 K/UL (4.8-10.8)
[2019-07-09 07:12] LABS: ANION GAP 8 mmol/L (5-15); BLOOD UREA NITROGEN 9 mg/dL (7-18); CARBON DIOXIDE 26 MMOL/L (21-32); CHLORIDE 104 MMOL/L (98-107); CREATININE 0.9 MG/DL (0.55-1.30); SODIUM 138 MMOL/L (136-145)
[2019-07-09 08:00] VITALS: BP 131/64
--- NOTE | 2019-07-09 08:01 | NUR ---
NURSE NOTES: ADVANCED DIET TOLERATED NOTED IN MAR. SPOKE TO DOCTOR TO SEE IF DIET CAN BE PLACED BACK TO REGULAR PATIENT TOLERATED LIQUID DIET WELL, GAVE THE OK TO ADVANCE TO REGULAR DIET. ORDERS PLACED.
[2019-07-09] MEDS: Docusate 100mg cap ORAL SCH ×2 (08:06→17:08)
--- NOTE | 2019-07-09 08:58 | 48 Hour Post Anesthesia Eval ---
Post Anesthesia Evaluation Procedure: Laparoscopic appendectomy Date of Evaluation: Jul 09, 2019 Time of Evaluation: 08:54 Blood Pressure Systolic: 116 0: 52 Pulse Rate: 74 Respiratory Rate: 16 Temperature (Fahrenheit): 97.4 O2 Sat by Pulse Oximetry: 98 Airway: patent Nausea: No Vomiting: No Pain Intensity: 3 Hydration Status: adequate Cardiopulmonary Status: stable Mental Status/LOC: patient returned to baseline Follow-up Care/Observations: n/a Post-Anesthesia Complications: none Follow-up care needed: N/A Bhavin Beck MD Jul 09, 2019 08:58
[2019-07-09 12:00] VITALS: BP 133/72
--- NOTE | 2019-07-09 12:31 | General Progress Note ---
Progress Note Progress Note POD #1 s/p lap appy doing well labs okay exam benign incisions c/d/i plan to d/c home tomorrow on oral abx Rx written for yoli walker flagyl x 7 days thank you Ishmael Alejandra Jul 09, 2019 12:31
--- NOTE | 2019-07-09 12:39 | NUR ---
CHARGE NURSE NOTE: Received patient's medication from [facility]. Meds were sent to [facility] pharmacy. Pt will get them upon discharge.
[2019-07-09] MEDS: D5 1/2NS 1,000 ML IV SCH (12:42)
--- NOTE | 2019-07-09 15:44 | NUR ---
INSURANCE REVIEW and clinicals have been FAXED TO [employer] ( INSURANCE ) [facility]:[place]; [phone] F: [phone] REF# [id number] Addendum: 07/09/19 at 1544 by ANITA CISNEROS CM F: [phone]
[2019-07-09 16:00] VITALS: BP 127/60
--- NOTE | 2019-07-09 16:00 | NUR ---
P.T Note: late entry 1000 P.T evaluation complete S/P Lap Appy. Pt is alert, O x 4 , pleasant and cooperative. Pt reports c/o 4-5/10 in the abdominal area aggravated by movement, sneezing/coughing. Pt educated on proper breathing tech and use of core muscle group and other compensatory movement tech to minimize pain symptoms. Pt also educated and encouraged on OOB activities VS bedrest following surgical procedure. Pt verbalized understanding. Pt is currently functioning independently at baseline. No further skilled P.T service follow up. DC P.T services.
--- NOTE | 2019-07-09 19:15 | NUR ---
NURSE NOTES: Received a report from Bruce Andre RN. AAOX4. Able to make needs known. On room air. C/o abdominal pain, rated pain 4/10. IV site is patent and intact. 3 surgical sites noted on the abdomen. Bed in lowest position. Bed alarm is on. Call light within reach. Will continue to monitor.
--- NOTE | 2019-07-09 19:50 | NUR ---
HAND-OFF: Report given to ELYSSA SALINAS.
[2019-07-09 20:00] VITALS: BP 140/67
--- NOTE | 2019-07-09 20:19 | General Progress Note ---
Assessment/Plan Problem List: (1) Perforated appendix ICD Codes: K35.32 - Acute appendicitis with perforation and localized peritonitis, without abscess SNOMED: 81381838 (2) Acute appendicitis ICD Codes: K35.80 - Unspecified acute appendicitis SNOMED: 00750294 (3) Abdominal pain ICD Codes: R10.9 - Unspecified abdominal pain SNOMED: 43363128 Status: progressing Assessment/Plan: s/p repair of perforated appendix abdominal pain is improving acute appendicitis Subjective ROS Limited/Unobtainable: Yes Gastrointestinal/Abdominal: Reports: abdominal pain Allergies: Coded Allergies: No Known Allergies (Unverified , 07/07/19) Objective Last 24 Hour Vital Signs Date Time Temp Pulse Resp B/P (MAP) Pulse Ox O2 Delivery O2 Flow Rate FiO2 07/09/19 20:00 98.5 54 18 140/67 (91) 98 07/09/19 16:00 99.4 57 19 127/60 (82) 98 07/09/19 12:00 97.9 49 18 133/72 (92) 99 07/09/19 09:00 Room Air 07/09/19 08:58 74 16 98 07/09/19 08:00 98.4 55 18 131/64 (86) 98 07/09/19 03:51 98.7 58 18 127/60 (82) 96 07/09/19 03:31 98.2 07/09/19 00:00 98.2 45 17 115/54 (74) 96 07/08/19 21:00 Room Air Intake and Output 07/08/19 07/09/19 19:00 07:00 Intake Total 1120 ml 455.0 ml Balance 1120 ml 455.0 ml Intake Oral 120 ml 120 ml IV Total 1000 ml 335.0 ml # Voids 2 Laboratory Tests 07/09/19 05:58: White Blood Count 9.4, Red Blood Count 4.12L, Hemoglobin 12.5L, Hematocrit 36.2L , Mean Corpuscular Volume 88, Mean Corpuscular Hemoglobin 30.3, Mean Corpuscular Hemoglobin Concent 34.6, Red Cell Distribution Width 11.5L, Platelet Count 200, Mean Platelet Volume 6.9, Neutrophils (%) (Auto) 71.8, Lymphocytes (%) (Auto) 17.0L, Monocytes (%) (Auto) 9.8, Eosinophils (%) (Auto) 0.8, Basophils (%) (Auto) 0.7, Sodium Level 138, Potassium Level 4.0, Chloride Level 104, Carbon Dioxide Level 26, Anion Gap 8, Blood Urea Nitrogen 9, Creatinine 0.9, Estimat Glomerular Filtration Rate > 60, Glucose Level 96, Calcium Level 9.0 Height (Feet): 5 Height (Inches): 11.00 Weight (Pounds): 176 Neck: supple Cardiovascular: normal rate Respiratory/Chest: lungs clear Lucien Dumont MD Jul 09, 2019 20:19
[2019-07-10] VITALS: BP 128/60
[2019-07-10] MEDS: Piperacillin/Tazobactam 3.375 GM in NS 110 ML IVPB SCH ×2 (00:32→08:10)
[2019-07-10] MEDS: Morphine Sulfate 2mg/ml Inj(IV/IM USE ONLY) IVP PRN ×2 (00:32→08:10)
[2019-07-10] MEDS: D5 1/2NS 1,000 ML IV SCH (03:50)
[2019-07-10 04:00] VITALS: BP 127/81
--- NOTE | 2019-07-10 07:30 | NUR ---
NURSE NOTES: Received pt from ELYSSA MARTIN. pt is alert and orient x4.Pt is in RA, no SOB or acute respiratory distress noted. pt has intact iv access LAC 20G is running well. pt has pain 3/10. all needs attended, bed is locked and is in the lowest position. call light within easy reach. will [id number] to monitor.
--- NOTE | 2019-07-10 07:30 | NUR ---
HAND-OFF: Report given to ELYSSA Cortez.
[2019-07-10 08:00] VITALS: BP 137/69
[2019-07-10] MEDS: Docusate 100mg cap ORAL SCH (08:09)
--- NOTE | 2019-07-10 09:53 | Surgery Progress Note ---
Surgery Progress Note Subjective Procedure Performed Lap appendectomy Symptoms: improved, tolerating diet, voiding well, passing flatus, pain decreased Objective Last 24 Hour Vital Signs Date Time Temp Pulse Resp B/P (MAP) Pulse Ox O2 Delivery O2 Flow Rate FiO2 07/10/19 08:40 98.4 07/10/19 08:00 98.4 69 18 137/69 (91) 98 07/10/19 04:00 98.0 60 18 127/81 (96) 99 07/10/19 00:00 97.4 50 18 128/60 (82) 98 07/09/19 21:00 Room Air 07/09/19 20:00 98.5 54 18 140/67 (91) 98 07/09/19 16:00 99.4 57 19 127/60 (82) 98 07/09/19 12:00 97.9 49 18 133/72 (92) 99 I&O Intake and Output 07/09/19 07/10/19 18:59 06:59 Intake Total 1800 ml 560.0 ml Balance 1800 ml 560.0 ml IV Total 560.0 ml Other 1800 ml # Voids 3 Dressing: dry Wound: clean, dry Drains: none Cardiovascular: RSR Respiratory: clear Abdomen: soft, flat, non-tender, present bowel sounds Extremities: no edema, no tenderness, no cyanosis Plan Problems: (1) Acute appendicitis Assessment & Plan: 23-year-old male acute appendicitis. s/p lap appy doing well improving pain controlled no n/v/f/c d/c home today Rx written f/u in 1 week thank you (2) Perforated appendix (3) Abdominal pain Ishmael Alejandra Jul 10, 2019 09:53
[2019-07-10] MEDS ORDERED: METRONIDAZOLE500 MG ORAL (09:56)
[2019-07-10] MEDS ORDERED: CIPROFLOXACIN500 M2 ORAL (09:56)
[2019-07-10] MEDS ORDERED: NORCO 5-325 TA1 EACH ORAL (09:56)
[2019-07-10] MEDS ORDERED: HYDROcodone/Acetamin 5/325 tab ORAL PRN (10:00)
[2019-07-10 12:00] VITALS: BP 131/63
--- NOTE | 2019-07-10 14:12 | NUR ---
NURSE NOTES: pt has discharge order, all discharge assessments and instructions done and pt verbally confirmed to understand all. pt is stable, V/S stable. all surgical sites are dry. all medications got from pharmacy and given to pt and he knows about instructions and verbally confirmed to understand all. iv access D/C. all belongings are with pt and checked with RN and pt signed belongings paper. pt left hospital with accompany his friends.
--- NOTE | 2019-07-10 15:00 | NUR ---
INSURANCE DISCHARGE INSTRUCTIONS HAVE BEEN FAXED NO D/C SUMMARY IN SYSTEM YET: JOSEPH GILLESPIE ( INSURANCE ) [facility]:[place]; [phone] F: [phone] REF# [id number] Addendum: 07/09/19 at 1544 by ANITA CISNEROS CM F: [phone]
--- NOTE | 2019-07-12 22:12 | Discharge Summary ---
Discharge Summary Discharge Summary _ DATE OF ADMISSION: 07/07/2019 DATE OF DISCHARGE: 07/10/2019 DISCHARGED BY: Dr. Lucien Qureshi CONSULTANTS: Dr. Ishmael Alejandra BRIEF HOSPITAL COURSE: Patient is a 23-year-old male, with no medical history, presented to ED complaining of right lower quadrant abdominal pain. Pain was 7 out of 10 without radiation. He denied any nausea, vomiting, diarrhea or constipation. He denied heavy lifting and strenuous physical activity. [place] He denied chest pain, shortness of breath, palpitation, dizziness and headache. He has not taken any medications for his symptoms. He denied any past surgical history in the abdomen. On evaluation at ED, vital signs were stable. Blood work did not show any leukocytosis, hemoglobin and hematocrit were stable. Chemistry showed potassium of 3.2. Total bilirubin 1.3. Lipase 68. Urinalysis was essentially unremarkable. Physical examination showed evidence of localized peritonitis in the right lower abdomen. CT imaging showed appendicitis with perforation without any definite abscess. Surgeon was consulted. He was started on IV Zosyn. He was then admitted for evaluation of perforated appendix. Surgical evaluation was done. CT was reviewed with the radiologist. There was no abscess identified. There was no significant cecal inflammation noted. Patient with fairly early appendicitis and a lack of periappendiceal stranding. Given these findings, long discussion with patient was discussed regarding operative versus nonoperative management. After all risks benefits and alternatives were discussed, patient decided to proceed with operative management. On 07/08/2019, patient was taken to the OR. He underwent laparoscopic appendectomy. He tolerated procedure well. First day postop, abdominal examination was benign. He was started on diet. Incisions were clean, dry and intact. The following day, he was tolerating diet, he was voiding well, he was passing flatus. Pain was decreased. He was cleared for discharge home. To continue p.o. Cipro and Flagyl for a week. FINAL DIAGNOSES: Perforated appendix status post laparoscopic appendectomy DISPOSITION: DC home. DISCHARGE MEDICATIONS: Refer to Discharge Medication List. DISCHARGE INSTRUCTIONS: Follow-up in a week. I have been assigned to complete a discharge summary on this account, I was not involved with the patient's management.--MYRANDA Mora Jacqueline Robles NP Jul 12, 2019 22:12
== END 2019-07-10 14:12 | disposition home or self-care (01) | DRG 340 ==
LOC: EMR 20:00 → 4E 20:16 → EDBEDREQ 20:48
PROC: 0DTJ4ZZ Resection of Appendix, Percutaneous Endoscopic Approach (ICD-10-PCS; principal; 2019-07-08 11:00)
DX: K35.32 Acute appendicitis with perforation, localized peritonitis, and gangrene, without abscess (principal); E87.8 Other disorders of electrolyte and fluid balance, not elsewhere classified
CPT/HCPCS: 36415; 74177; 80048; 80053; 81001; 82248; 83690; 85025; 85610; 85730; 86850; 86900; 86901; 87081; 94003; 94150; 96365; 99285; J2250; J2405; J2710